=== PATIENT | female | born 1955 | race Caucasian/White ===

== ENCOUNTER 2017-03-18 11:03 | Emergency (ER) | payer BC ==
[2017-03-18 11:08] VITALS: BMI 21.9
[2017-03-18 11:44] LABS: PH,URINE 5.5 (4.5-8); URINE APPEARANCE Clear; URINE BILIRUBIN Negative (NEGATIVE); URINE BLOOD Negative (NEGATIVE); URINE GLUCOSE (UA) Negative (NEGATIVE); URINE KETONE Negative (NEGATIVE); URINE LEUK ESTERASE Negative (NEGATIVE); URINE NITRITE Negative (NEGATIVE); URINE PROTEIN Negative (NEGATIVE); URINE UROBILINOGEN 0.2 E.U/dl (0.2-1.0)
[2017-03-18 11:45] LABS: URINE COLOR YELLOW
[2017-03-18 11:50] LABS: EOSINOPHIL 3.9 % (0-4.5); MCH 31.3 pg (25.7-33.7); MCHC 34.3 g/dl (32.0-36.0); MEAN CELL VOLUME 91.2 fl (80-96); MEAN PLT VOLUME 7.7 fl (7.5-11.1); NEUTROPHILS 65.6 % (42.8-82.8); PLATELET COUNT 230 K/MM3 (134-434); WHITE BLOOD COUNT 4.9 K/mm3 (4.0-10.8)
[2017-03-18 12:09] LABS: ALBUMIN 4.1 g/dl (3.5-5.0); ALK PHOS 78 U/L (32-92); ANION GAP 6 (8-16); BILIRUBIN,TOTAL 1.1 mg/dl (0.2-1.0); CO2 25 mmol/L (22-28); CREATININE 0.6 mg/dl (0.6-1.3); GLUCOSE,RANDOM 100 mg/dl (74-106); SGOT/AST 28 U/L (10-42); SGPT/ALT 22 U/L (10-40); TOT PROT 6.4 g/dl (6.4-8.3)
--- NOTE | 2017-03-18 12:21 | PDOC ---
History of Present Illness - General Chief Complaint: Pain, Acute Stated Complaint: LOWER LEFT ABD PAIN Time Seen by Provider: 03/18/17 11:05 History Source: Patient Exam Limitations: No Limitations - History of Present Illness Initial Comments: 03/18/17 12:14 CHIEF COMPLAINT: Left lower quadrant abdominal pain for 3 days HISTORY OF PRESENT ILLNESS: Patient is a 61-year-old female who presents complaining of left lower quadrant abdominal pain. She states the pain started on , and she had some constipation, which is typical for her. Yesterday , she went to the urgent care center [facility] for an evaluation. She had laboratory workup with a normal white blood cell count 4.5. Hemoglobin was 13.8. Differential had 71% neutrophils. Chemistry studies were all normal including liver function tests. An abdominal ultrasound and a pelvic ultrasound was performed which was normal. The physician there advised the patient to follow-up if her symptoms progressed. Patient took a laxative at home last night and had a good bowel movement, a little bit loose after the laxative. However, this did not relieve her symptoms. She denies dysuria or frequency. She denies nausea or vomiting. Her appetite is a little bit poor, but this is her baseline. She has a history of celiac disease on a gluten-free diet for 6 years. She states she has continued to follow her diet as instructed. She has a history of hysterectomy and bilateral oophorectomy, for uterine prolapse. This surgery was performed 13 years ago. It was complicated by an injured ureter requiring a stent. REVIEW OF SYSTEMS: GENERAL/CONSTITUTIONAL: No fever or chills. No weakness. No weight change. HEAD, EYES, EARS, NOSE AND THROAT: No change in vision. No ear pain or discharge. No sore throat. CARDIOVASCULAR: No chest pain or shortness of breath. RESPIRATORY: No cough, wheezing, or hemoptysis. GASTROINTESTINAL: No nausea, vomiting. Positive constipation, now resolved after taking a laxative. This did not change the left lower quadrant pain. No rectal bleeding. Positive history of celiac disease. GENITOURINARY: No dysuria, frequency, or change in urination. MUSCULOSKELETAL: No joint or muscle swelling or pain. No neck or back pain. SKIN AND BREASTS: No rash or easy bruising. NEUROLOGIC: No headache, vertigo, loss of consciousness, or loss of sensation. PSYCHIATRIC: No depression. Positive anxiety in the setting of her daughter's upcoming wedding. ENDOCRINE: No increased thirst. No abnormal weight change. HEMATOLOGIC/LYMPHATIC: No anemia, easy bleeding, or history of blood clots. ALLERGIC/IMMUNOLOGIC: No hives or skin allergy. No latex allergy. Past History - Past Medical History Allergies/Adverse Reactions: Allergies Allergy/AdvReac Type Severity Reaction Status Date / Time No Known Allergies Allergy Verified 03/18/17 11:04 Home Medications: Ambulatory Orders Amoxicillin/Potassium Clav [Augmentin 875-125 Tablet] 1 each PO BID #14 tablet 03/18/17 Triazolam [Halcion] 0.25 mg PO HS 03/18/17 Anemia: No Asthma: No Cancer: No Cardiac Disorders: Yes (CAROTID ARTERY DISEASE) CVA: No COPD: No CHF: No Dementia: No Diabetes: No GI Disorders: No Disorders: No HTN: No Hypercholesterolemia: No Liver Disease: No Seizures: No Thyroid Disease: No - Surgical History Abdominal Surgery: No Appendectomy: No Cardiac Surgery: No Cholecystectomy: No Lung Surgery: No Neurologic Surgery: Yes (ANEURYSM WITH STENT) Orthopedic Surgery: No Other Surgical History: 03/18/17 12:22 Hysterectomy and oophorectomy with complication of ureteral injury requiring stent - Psycho/Social/Smoking Cessation Hx Anxiety: No Suicidal Ideation: No Smoking History: Never smoked Have you smoked in the past 12 months: No Hx Alcohol Use: No Drug/Substance Use Hx: No Substance Use Type: None Hx Substance Use Treatment: No *Physical Exam - Vital Signs Last Vital Signs Temp Pulse Resp BP Pulse Ox 97.6 F 69 18 128/79 100 03/18/17 11:04 03/18/17 11:04 03/18/17 11:04 03/18/17 11:04 03/18/17 11:04 - Physical Exam Comments: 03/18/17 12:22 GENERAL: The patient is awake, alert, and fully oriented, in no acute distress. She appears well, she is smiling and laughing. HEAD: Normal with no signs of trauma. EYES: Pupils equal, round and reactive to light, extraocular movements intact, sclera anicteric, conjunctiva clear. ENT: Ears normal, nares patent, oropharynx clear without exudates. Moist mucous membranes. NECK: Normal range of motion, supple without lymphadenopathy, JVD, or masses. LUNGS: Breath sounds equal, clear to auscultation bilaterally. No wheezes, and no crackles. HEART: Regular rate and rhythm, normal S1 and S2 without murmur, rub or gallop. ABDOMEN: Soft, normal bowel sounds, positive mild left lower quadrant tenderness and suprapubic tenderness on deep palpation. No guarding, no rebound. No masses. BACK: No CVA tenderness. EXTREMITIES: Normal range of motion, no edema. No clubbing or cyanosis. No cords, erythema, or tenderness. NEUROLOGICAL: Cranial nerves II through XII grossly intact. Normal speech, normal gait. PSYCH: Normal mood, normal affect. SKIN: Warm, Dry, normal turgor, no rashes or lesions noted. ED Treatment Course - LABORATORY CBC & Chemistry Diagram: 03/18/17 11:30 03/18/17 11:30 - ADDITIONAL ORDERS Additional order review: Laboratory Results 03/18/17 11:25 Urine Color Yellow Urine Appearance Clear Urine pH 5.5 D Ur Specific [place] >= 1.030 H Urine Protein Negative Urine Glucose (UA) Negative Urine Ketones Negative Urine Blood Negative Urine Nitrite Negative Urine Bilirubin Negative Urine Urobilinogen 0.2 e.u/dl Ur Leukocyte Esterase Negative - RADIOLOGY Radiology Studies Ordered: Category Date Time Status ABDOMEN & PELVIS CT WITH CONTR [CT] Stat CT Scan 03/18/17 11:29 Ordered Medical Decision Making - Medical Decision Making 03/18/17 16:31 Patient is a 61-year-old woman who is been having 3 days of left lower quadrant pain. She felt constipated, but there was no relief after a laxative. She was seen in the urgent care center and had an ultrasound and labs which were unremarkable. Her pain has persisted so she comes in today for further evaluation at the recommendation of her doctor to get a CT scan. Notably, there is no fever, no vomiting, no change in appetite. On examination, the patient is afebrile. Her abdomen has mild tenderness in the left lower quadrant and suprapubic region. There is no guarding or rebound tenderness. Laboratory studies reviewed. There is no leukocytosis. CT scan of the abdomen and pelvis was ordered to rule out diverticulitis. The CT scan shows mild sigmoid diverticulitis. Given that the patient is afebrile with a normal white blood cell count, she is a good candidate for outpatient oral therapy for mild diverticulitis. Prescription written for Augmentin 875 twice a day, first dose in the emergency department, and then to continue at home. Patient has follow-up scheduled with her primary care physician Dr. Parsons on Monday of this week. She is aware of the diagnosis and agrees to take the antibiotic prescription and follow-up as scheduled. *DC/Admit/Observation/Transfer Diagnosis at time of Disposition: Sigmoid diverticulitis - Discharge Dispostion Disposition: HOME Condition at time of disposition: Stable Admit: No - Prescriptions Prescriptions: Amoxicillin/Potassium Clav [Augmentin 875-125 Tablet] 1 each PO BID #14 tablet - Referrals Referrals: Timo Parsons MD [Primary Care Provider] - 3 days - Patient Instructions Printed Discharge Instructions: DI for Diverticulitis Additional Instructions: Today you were evaluated for pain in the lower abdomen. The CT scan of the abdomen and pelvis shows sigmoid diverticulitis, which is simply an inflammation and infection around the colon. Take the Augmentin antibiotic twice daily for 7 days. Drink plenty of fluids, and take Tylenol as needed for pain. Follow up with Dr. Parsons as scheduled on Monday. If you have any severe or progressive symptoms, you may return to the emergency department at any time.
[2017-03-18] MEDS ORDERED: ACETAMINOPHEN INJECTION 100 ML IVPB ONE (12:29)
[2017-03-18 15:40] VITALS: BP 144/80; PULSE 64; TEMP 97.7
[2017-03-18] MEDS ORDERED: AMOX TR/POT CLAV 875MG/125MG TABLETS (FP) PO ONE (16:31)
[2017-03-18] MEDS ORDERED: AMOX TR/POT CLAV 875MG/125MG TABLETS (FP) ONE (16:32)
== END 2017-03-18 16:42 | disposition home or self-care (01) ==
LOC: FER 11:03
DX: K57.30 Diverticulosis of large intestine without perforation or abscess without bleeding (principal); I25.10 Atherosclerotic heart disease of native coronary artery without angina pectoris; Z98.2 Presence of cerebrospinal fluid drainage device; F41.0 Panic disorder [episodic paroxysmal anxiety]; K90.0 Celiac disease
CPT/HCPCS: 36415; 74177-TC; 80053; 81003; 83690; 85025; 99283-25

== ENCOUNTER 2020-10-04 10:35 | Emergency (ER) | payer OTHER, BC ==
[2020-10-04 11:08] VITALS: BP 149/88; PULSE 84; TEMP 98.5; BMI 22.3
== END 2020-10-04 12:43 | disposition home or self-care (01) ==
LOC: FER 10:35
DX: R42 Dizziness and giddiness (principal); K04.7 Periapical abscess without sinus; R51.9 Headache, unspecified
CPT/HCPCS: 70450-TC; 99284-25

== ENCOUNTER 2023-12-27 09:41 | Emergency (ER) | payer OTHER, BC ==
[2023-12-27 09:53] VITALS: BP 165/86; PULSE 70; RESP 16; TEMP 97.6; BMI 23.0
[2023-12-27 10:22] LABS: EPITHELIAL CELLS 0-5 /hpf
[2023-12-27 10:27] LABS: HEMATOCRIT 43.6 % (32.4-45.2); HEMOGLOBIN 14.6 G/dL (10.7-15.3); MCH 31.2 pg (25.7-33.7); MCHC 33.4 g/dl (32.0-36.0); MEAN CELL VOLUME 93.3 fl (80-96); RBC 4.67 10^6/uL (3.60-5.2); RDW 13.7 % (11.6-15.6)
[2023-12-27 10:30] LABS: PLATELET ESTIMATE ADEQUATE
[2023-12-27 10:40] LABS: ALBUMIN 4.5 g/dl (3.4-5.0); BILIRUBIN,TOTAL 0.7 mg/dl (0.2-1); CALCIUM 9.2 mg/dl (8.5-10.1); CREATININE 0.6 mg/dl (0.6-1.3); POTASSIUM 3.9 mmol/L (3.5-5.1); TOT PROT 6.6 g/dl (6.4-8.2)
[2023-12-27] MEDS ORDERED: cefTRIAXone SODIUM 1 GM VIAL ONE (12:14)
== END 2023-12-27 13:20 | disposition home or self-care (01) ==
LOC: FER 09:41 → SUPCPDRO 09:41 → FER 13:20
PROC: 3E033NZ Introduction of Analgesics, Hypnotics, Sedatives into Peripheral Vein, Percutaneous Approach (ICD-10-PCS; principal; 2023-12-27)
DX: R10.31 Right lower quadrant pain (principal); N12 Tubulo-interstitial nephritis, not specified as acute or chronic; N39.0 Urinary tract infection, site not specified
CPT/HCPCS: 36415; 74177-TC; 80053; 81003; 81015; 83690; 85027; 87086; 87186; 99285-25; Q9967

== ENCOUNTER 2023-12-31 08:27 | Emergency (ER) | payer OTHER, BC ==
[2023-12-31 08:37] VITALS: BP 133/85; PULSE 81; RESP 18; TEMP 97.4; BMI 23.0
[2023-12-31] MEDS ORDERED: CIPROFLOXACIN 250 MG TABLET (RESTRICTED TO ID) PO ONE (09:12)
[2023-12-31] MEDS: CIPROFLOXACIN 500 MG TABLET (RESTRICTED TO ID) PO ONE (09:18)
== END 2023-12-31 09:21 | disposition home or self-care (01) ==
LOC: FER 08:27
DX: R30.0 Dysuria (principal); R10.31 Right lower quadrant pain; N30.01 Acute cystitis with hematuria
CPT/HCPCS: 99283-25